=== PATIENT | female | born 1945 | race Hispanic/Latino ===

== ENCOUNTER → 2020-12-19 | Outpatient (CLI) | payer OTHER ==
[~2020-12-19] MED LIST: IOHEXOL-350 50ML VIAL IV ONE
== END | disposition home or self-care (01) ==
LOC: RAH 12:31
PROVIDERS: ATTEND Internal Medicine
DX: I73.9 Peripheral vascular disease, unspecified (principal); G45.9 Transient cerebral ischemic attack, unspecified
CPT/HCPCS: 70470; 93880; Q9967

== ENCOUNTER 2022-09-27 23:37 | Emergency (ER) | payer OTHER ==
[~2022-09-27] VITALS: Ht 154.9 cm; Wt 61.7 kg
[2022-09-28] MEDS ORDERED: IBUPROFEN 600 MG TABLET PO ONE (01:00)
[2022-09-28 01:37] LABS: BASOPHILS % (AUTO) 0.5 % (0.0-5.0); EOSINOPHILS % (AUTO) 0.5 % (0.0-8.0); HEMATOCRIT 30.6 % (36-48); LYMPHOCYTES % (AUTO) 22.6 % (21.0-51.0); MEAN CORPUSCULAR HEMOGLOBIN 29.5 pg (27.0-33.0); MEAN CORPUSCULAR HGB CONC 34.3 g/dL (32.0-36.0); MONOCYTES % (AUTO) 18.3 % (3.0-13.0); NEUTROPHILS % (AUTO) 57.6 % (40.0-77.0); PLATELET COUNT (AUTO) 177 K/uL (130-400); RED BLOOD CELL COUNT(AUTO) 3.56 MIL/uL (4.00-5.50); RED CELL DISTRIBUTION WIDTH 13.8 % (11.0-15.5); WHITE BLOOD COUNT (AUTO) 3.9 K/uL (4.8-10.8)
[2022-09-28 01:46] LABS: CREATININE 0.6 mg/dL (0.5-1.5); POTASSIUM 3.8 mmol/L (3.5-5.1)
[2022-09-28 01:51] LABS: ALBUMIN 3.7 g/dL (3.5-5.0); B-TYPE NATRIURETIC PEPTIDE 30 pg/mL (0-100); TOTAL PROTEIN, SERUM 7.1 g/dL (6.0-8.3)
[2022-09-28] MEDS ORDERED: IBUP-2076 PO (02:30)
[2022-09-28] MEDS ORDERED: CYCL-309 PO (02:30)
[2022-09-28 02:43] VITALS: BP 147/75
== END 2022-09-28 02:44 | disposition home or self-care (01) ==
LOC: EDH 23:37
DX: M54.2 Cervicalgia (principal); R51.9 Headache, unspecified; E78.00 Pure hypercholesterolemia, unspecified; E03.9 Hypothyroidism, unspecified; Z79.1 Long term (current) use of non-steroidal anti-inflammatories (NSAID); Z88.0 Allergy status to penicillin
CPT/HCPCS: 36415; 71046; 72050; 80053; 83880; 84484; 85025; 93005